=== PATIENT | male | born 1965 | race Caucasian/White ===

== ENCOUNTER → 2020-03-17 | Outpatient (CLI) | payer BC ==
--- NOTE | 2020-03-17 14:52 | US ---
EXAMINATION TYPE: US kidneys/renal and bladder DATE OF EXAM: 03/17/2020 COMPARISON: NONE CLINICAL HISTORY: R31.9 HEMATURIA. Left side pain. Patient voided before exam. EXAM MEASUREMENTS: Right Kidney: 11.1 x 4.9 x 4.3 cm Left Kidney: 10.4 x 5.3 x 5.7 cm Right Kidney: No hydronephrosis or masses seen Left Kidney: No hydronephrosis or masses seen Bladder: nondistended Bilateral Jets not seen due to nondistended bladder There is no evidence for hydronephrosis at this point in time. No nephrolithiasis is seen. No shannan s are identified. The urinary bladder is anechoic. Bilateral ureteral jets are seen. IMPRESSION: No distinct abnormality seen.
== END | disposition home or self-care (01) ==
LOC: RADUSWWP 14:06
PROVIDERS: ATTEND Family Medicine
DX: R31.9 Hematuria, unspecified (principal); R39.89 Other symptoms and signs involving the genitourinary system
CPT/HCPCS: 76770